=== PATIENT | female | born 1975 | race Caucasian/White ===

== ENCOUNTER 2022-04-28 09:35 | Outpatient (CLI) | payer OTHER | END 2022-04-28 09:36 | disposition home or self-care (01) | LOC: TBSIIMAG 09:35 | PROVIDERS: ATTEND Neurological Surgery | DX: M50.122 Cervical disc disorder at C5-C6 level with radiculopathy (principal) | CPT/HCPCS: 72141 ==

== ENCOUNTER 2022-05-14 11:38 | Outpatient (CLI) | payer OTHER | END 2022-05-14 11:39 | disposition home or self-care (01) | LOC: BICRAD 11:38 | PROVIDERS: ATTEND Preventive Medicine Occupational Medicine | DX: M17.11 Unilateral primary osteoarthritis, right knee (principal) ==